=== PATIENT | female | born 1985 | race Caucasian/White ===

== ENCOUNTER → 2018-08-03 | Day surgery (SDC) | payer OTHER, SELFPAY ==
[~2018-08-03] MED LIST: Bupivacaine/Epinephrine 0.25% 30 ML VIAL ONE; Dexamethasone 20 MG/5 ML VIAL ONE; Ertapenem 1 GM in Sodium Chloride 0.9% 100 ML IVPB SCH; Fentanyl 100 MCG/2 ML VIAL ONE; Glycopyrrolate 0.2 MG/ML 5 ML SYRINGE ONE; Iopamidol-370 76% 500 ML 1 ML ONE; Ketorolac Tromethamine 30 MG/ML VIAL ONE; Lidocaine 1% PF 5 ML VIAL ONE; Midazolam HCl 2 mg/2 ml Vial ONE; Ondansetron ODT 4 MG TAB ONE; Ondansetron PF 4 MG/2 ML Vial ONE; PROPOFOL 200 MG/20 ML VIAL ONE; Promethazine HCl 25 MG/ML VIAL ONE; Succinylcholine Chloride 20 MG/ML 10 ml SYRINGE FS ONE
[2018-08-03 14:14] LABS: #Basophils 0.1 thou/uL (0.0-0.2); #Eosinphils 0.1 thou/uL (0.0-0.7); #Lymphocytes 2.2 thou/uL (1.20-3.40); #Monocytes 0.8 thou/uL (0.11-0.59); #Neutrophils 10.4 thou/uL (1.40-6.50); %Basophils 0.5 % (0.0-1.0); %Lymphocytes 16.1 % (21.0-51.0); %Monocytes 6.1 % (0.0-10.0); %Neutrophils 76.4 % (42.0-75.0); Hemoglobin 12.9 g/dL (12.0-16.0); Mean Corpuscular HGB CONC 32.3 g/dL (32.0-36.0); Mean Corpuscular Hemoglobin 25.2 pg (27.0-31.0); Mean Corpuscular Volume 77.9 fL (78.0-98.0); Mean Platelet Volume 9.4 fL (7.4-10.4); Platelet Count 319 thou/uL (130-400); RBC Distribution Width 14.4 % (11.5-14.5); Red Blood Cell (RBC) Count 5.14 mill/uL (4.20-5.40); White Blood Cell (WBC) Count 13.7 thou/uL (4.8-10.8)
[2018-08-03 14:37] LABS: ALT (SGPT) 22 U/L (8-55); AST (SGOT) 24 U/L (5-34); Albumin 4.5 g/dL (3.5-5.0); Alkaline Phosphatase 75 U/L (40-150); Anion Gap 12 mmol/L (10-20); BUN (Urea Nitrogen) 9 mg/dL (7.0-18.7); Bilirubin, Total 0.3 mg/dL (0.2-1.2); Calc. Creatinine Clearance 0 mL/min (70-130); Calcium 10.2 mg/dL (7.8-10.44); Carbon Dioxide 26 mmol/L (22-29); Chloride 105 mmol/L (98-107); Estimated GFR-MDRD 83; Globulin 3.3 g/dL (2.4-3.5); Glucose 84 mg/dL (70-105); Lipase 33 U/L (8-78); Protein, Total 7.8 g/dL (6.0-8.3); Sodium 139 mmol/L (136-145)
[2018-08-03 15:12] LABS: BHCG - Serum Negative (NEGATIVE)
[2018-08-03 15:13] LABS: Pregs Control Background? CLEAR/WHITE (CLR/WHITE); Pregs Control Bar Appear? YES (CONTROL BAR)
[2018-08-03 15:18] LABS: Bilirubin Negative (Negative); Blood, Urine Negative (Negative); Clarity CLEAR (Clear); Glucose, Urine (Dipstick) Negative (Negative); Leukocyte Negative (Negative); Nitrite Negative (Negative); Protein, Urine (Dipstick) Negative (Neg-Trace); Specific Gravity, Urine 1.014 (1.002-1.036); Urobilinogen 0.2 mg/dL (0.2-1.0); pH, Urine 7.5 (5.0-9.0)
[2018-08-03 15:20] LABS: Pregnancy Test - Urine (BHCG) Negative (Negative); Pregu Control Background? CLEAR/WHITE (CLR/WHITE); Pregu Control Bar Appear? YES (CONTROL BAR); Specific Gravity 1.014 (1.002-1.036)
--- NOTE | 2018-08-03 15:32 | CT ---
CT ABDOMEN AND PELVIS WITH IV CONTRAST: History: Right lower quadrant pain. FINDINGS: Lung bases are clear. The liver, spleen, kidneys, adrenal glands, and pancreas have a normal CT appea travon. Urinary bladder is incompletely distended. The appendix is slightly dilated with fluid, with a slightly thickened wall and adjacent fat stranding. Small stone is present near the tip of the appen nadir. IMPRESSION: Acute appendicitis. POS: [facility]
--- NOTE | 2018-08-03 17:52 | HP ---
CHIEF COMPLAINT: Abdominal pain. HISTORY: Ms. Almonte is a 33-year-old woman, who was in her normal state of health until 8 o'clock this morning when she noticed a crampy pain in the right lower quadrant. The pain became more severe as the morning was on and started to radiate across to the left lower quadrant. She had chills and nausea and came to the emergency room because she was concerned about her appendix. Evaluation in the emergency room included a CT of the abdomen and pelvis, which was positive for acute appendicitis. Since receiving pain medications and IV fluids, the patient is feeling better. She states the pain is worse with movements or changing position and better with pain medications. She has not tried anything at home to relieve the pain. PAST MEDICAL HISTORY: None. PAST SURGICAL HISTORY: None. MEDICATIONS: No chronic medications. She does occasionally take decongestant for sinus problems. FAMILY HISTORY: Noncontributory. ALLERGIES: SHE HAS AN ADVERSE DRUG REACTIONS TO CODEINE, BUT SHE DOES NOT KNOW WHAT THE REACTION IS. SHE STATES THAT SHE RECEIVED IT A CHILD AND DID NOT RESPOND WELL TO IT, BUT SHE DOES NOT KNOW WHAT SORT OF REACTION SHE HAD. SHE HAS TOLERATED DEMEROL IN THE PAST WITHOUT PROBLEMS. SOCIAL HISTORY: She drinks socially, but not to excess and does not smoke or use any illicit drugs. REVIEW OF SYSTEMS: Ten system review of systems is negative except per HPI and some mild back pain. IMAGING: CT images are reviewed and I agreed with the written report. The patient has a dilated fluid-filled appendix with periappendiceal stranding and fecalith in the tip. Her white count is elevated at 13.7, hematocrit is 40. Electrolytes and LFTs are unremarkable and her serum test is negative. ASSESSMENT: Acute appendicitis. RECOMMENDATION: Recommendation was made to proceed with laparoscopic appendectomy. The patient's diagnosis and recommended treatment were discussed in detail and the inherent risks of surgery were also discussed. These include, but are not limited to bleeding, infection, risks of anesthesia, damage to nearby structures including bowel, blood vessels, need for other surgeries, need for open surgery. She understands, accepts these risks and wishes to proceed. I have ordered antibiotics for her and posted her emergently for the operating room. Job ID: [id number]
--- NOTE | 2018-08-11 13:45 | PDOC.OP ---
Operative Note - Operative Note Operative Note: PROCEDURE: Laparoscopic appendectomy SURGEON: Duane Barton M.D. DATE OF PROCEDURE: 08/03/28 PREOPERATIVE DIAGNOSIS: Appendicitis POSTOPERATIVE DIAGNOSIS: Appendicitis HISTORY: Patient with a one day history of right-sided abdominal pain who was found on CT to have evidence of appendicitis. Recommendation was made to proceed with laparoscopic appendectomy. FINDINGS: Acutely inflamed appendix without evidence of perforation. DESCRIPTION OF PROCEDURE: After informed consent was obtained and appropriate antibiotics continued, the patient was taken to the operating room and placed in the supine position and general endotracheal anesthesia was administered. The bladder was decompressed with a [place] catheter and the abdomen was prepped and draped in the standard sterile fashion. Local anesthesia was infused to the skin and subcutaneous tissues superior to the umbilicus. A transverse skin incision was made and a Veress needle placed into the abdominal cavity and carbon dioxide gas insufflated without difficulty. Opening pressure was less than 5. Carbon dioxide gas was insufflated to an intra-abdominal pressure 15 and the patient tolerated this well. The Veress needle was withdrawn and a [place] port advanced under direct laparoscopic vision into the abdominal cavity. Two additional ports were placed in the suprapubic and left lateral abdomen under direct laparoscopic vision after local anesthesia was infused at these sites. The appendix was identified and appeared inflamed but not perforated. The appendix was grasped by the mesoappendix and elevated. The mesoappendix was then sequentially ligated and divided down to the base of the appendix, which was normal in appearance and was clearly seen to be at the confluence of the tenia. Two Endoloops were placed around the base of the appendix and the appendix was divided between these Endoloops, placed into an EndoCatch bag and drawn out through the suprapubic incision. The suprapubic trocar was then replaced and the operative site was easily irrigated to clear. The suprapubic trocar was removed and the fascia closed under direct laparoscopic vision with a 0 Vicryl suture on a GraNee needle with excellent technical result. The left lateral trocar was then removed and hemostasis verified. Carbon dioxide gas was desufflated through the umbilical trocar which was then removed. The skin incisions were irrigated and additional local anesthesia infused at each site. The skin was closed with 4-0 subcuticular Monocryl sutures and Dermabond dressings were placed. The patient was extubated and taken to the recovery room in good condition. Estimated blood loss was minimal. There were no complications.
== END ==
LOC: ERS 13:19 → SDC/OP 16:48 → ERS 20:57
PROVIDERS: ATTEND Obstetrics & Gynecology
PROC: 0DTJ4ZZ Resection of Appendix, Percutaneous Endoscopic Approach (ICD-10-PCS; principal; 2018-08-03)
DX: K35.80 Unspecified acute appendicitis (principal); Z79.899 Other long term (current) drug therapy; Z88.5 Allergy status to narcotic agent
CPT/HCPCS: 74177; 80053; 81003; 81025; 83690; 84703; 85025; 88304; 96361; 96374; 96375; J1100; J1335; J1885; J2001; J2250; J2405; J2550; J2704; J3010; J7050; Q0162; Q9967